=== PATIENT | male | born 1980 | race American Indian/Alaskan Native ===

== ENCOUNTER 2016-12-25 15:11 | Emergency (ER) | payer MEDICARE ==
[2016-12-25 15:31] VITALS: BP 127/72
== END 2016-12-25 18:45 | disposition left against medical advice (07) ==
LOC: ED 15:11
DX: R56.9 Unspecified convulsions (principal); Z53.21 Procedure and treatment not carried out due to patient leaving prior to being seen by health care provider

== ENCOUNTER 2017-05-17 01:47 | Emergency (ER) | payer MEDICARE ==
--- NOTE | 2017-05-17 04:20 | Emergency Department Report ---
HPI - General Chief Complaint: Dental/Oral Time Seen by Provider: 05/17/17 04:03 - HPI HPI: The patient is a 36-year-old male who presents to ED complaining of 8/10 pain in the right side of his mouth x 2 days . Patient states that the pain started 52 days ago and has gotten progressively worse by swelling on the right jaw region. The pain is exacerbated by eating and opening of the mouth. Patient states that it radiates towards ear. Patient describes a as a throbbing, pressure-like sensation. Patient states otherwise well and has no other complaints. Patient has had no fevers and no chills. No chest pain, no shortness of breath. No abdominal pain. No shortness of breath or recent trauma to the face. ED Past Medical Hx - Past Medical History Previous Medical History?: Yes Hx Seizures: Yes Hx HIV: Yes - Surgical History Past Surgical History?: No - Social History Smoking Status: Current Every Day Smoker Substance Use Type: Alcohol - Medications Home Medications: Home Medications Medication Instructions Recorded Confirmed Last Taken Type Ritonavir [Norvir] 100 mg PO QDAY 12/25/16 12/25/16 12/25/16 History lamiVUDine/ZIDOVUDINE [COMBIVIR 1 tab PO DAILY 12/25/16 12/25/16 12/25/16 History 150-300 mg] levETIRAcetam 500 mg PO BID 12/25/16 12/25/16 12/25/16 History Acetaminophen/Codeine [Tylenol 1 tab PO TID #8 tablet 05/17/17 Unknown Rx /Codeine # 3 tab] Amoxicillin/K Clav Tab [Augmentin 1 tab PO Q12HR #20 tab 05/17/17 Unknown Rx 875 mg] Ibuprofen [Motrin] 800 mg PO Q8HR PRN #30 tablet 05/17/17 Unknown Rx ED Review of Systems ROS: Stated complaint: ABSCESS ON RT SIDE OF FACE Other details as noted in HPI Constitutional: denies: chills, fever Eyes: denies: eye pain, eye discharge, vision change ENT: dental pain. denies: ear pain, throat pain, hearing loss, congestion Respiratory: denies: cough, shortness of breath, wheezing Cardiovascular: denies: chest pain, palpitations Endocrine: no symptoms reported Gastrointestinal: denies: abdominal pain, nausea, diarrhea Genitourinary: denies: urgency, dysuria Musculoskeletal: denies: back pain, joint swelling, arthralgia Skin: denies: rash, lesions Neurological: denies: headache, weakness, paresthesias Psychiatric: denies: anxiety, depression Hematological/Lymphatic: denies: easy bleeding, easy bruising Physical Exam - Physical Exam Vital Signs: Vital Signs 05/17/17 02:21 Temperature 97.8 F Pulse Rate 70 Respiratory 20 Rate Blood Pressure 120/84 O2 Sat by Pulse 100 Oximetry Physical Exam: GENERAL: Alert and oriented x3, no apparent distress, Normal Gait, atraumatic. HEAD: Head is normocephalic and a-traumatic. EARS: symetrical, atraumatic, non tender, ear canal clear and moderate cerumen, tympanic membrance non inflamed. gross auditory nml bilaterally. MOUTH:Mouth is well hydrated and without lesions. Tonsils nonerythematous or swollen, Uvula midline, Tongue not elevated. Mucous membranes are moist. Posterior pharynx clear, no exudate or lesions. Patent airways. No active bleeding, no pus discharge, gingival enlargement underneath tooth #29 underneath tooth, tender to palpation of the gum. Tooth #29 is nontender to palpation no dental caries seen on the tooth. Front 5 cm in diameter swelling noticed underneath right jaw NECK: Supple. Non edematous,. submental lymphadenopathy LUNGS: Symetrical with respiration, No wheezing, no rales or crackles, CTAB. HEART: S1, S2 present, regular rate and rhythm without murmur, no rubs, no gallops. Non tender to palpation SKIN: Warm and dry, No lesions, No ulceration or induration present. ED Course Vital Signs 05/17/17 02:21 Temperature 97.8 F Pulse Rate 70 Respiratory 20 Rate Blood Pressure 120/84 O2 Sat by Pulse 100 Oximetry ED Medical Decision Making - Medical Decision Making 36-year-old male who presents with right-sided Facial pain secondary to dental abscess ED course: Patient received 875 mg of augmentin, 2 tablets of Tylenol No. 3. Based upon history and physical examination, pain is a result of an abscess of tooth number 29 and that the pain Pt feels on the right side of his face and towards the ear is referred pain from this infectious process. Pt has no evidence of acute impending airway compromise. At this point, patient will be discharged home on some antibiotics and pain trial, she will do well with an outpatient course of antibiotics. Follow up with the Dental Clinic as referred Vital signs are normal patient is in no acute distress. Pt had an effect uneventful ED stay Critical care attestation.: If time is entered above; I have spent that time in minutes in the direct care of this critically ill patient, excluding procedure time. ED Disposition Clinical Impression: Dental abscess Disposition: DC- TO HOME OR SELFCARE Is pt being admited?: No Does the pt Need Aspirin: No Condition: Stable Instructions: Dental Abscess (ED), Toothache (ED) Additional Instructions: Follow-up with dentist as soon as you can. Take your medication as prescribed. Apply warm compresses to jaw or times a day Prescriptions: Acetaminophen/Codeine [Tylenol /Codeine # 3 tab] 1 tab PO TID #8 tablet Amoxicillin/K Clav Tab [Augmentin 875 mg] 1 tab PO Q12HR #20 tab Ibuprofen [Motrin] 800 mg PO Q8HR PRN #30 tablet PRN Reason: Pain Referrals: PRIMARY CARE, [Primary Care Provider] - 3-5 Days [facility] [Outside] - 3-5 Days [facility] [Outside] - 3-5 Days [facility] [Outside] - 3-5 Days Forms: Accompanied Note, Work/School Release Form(ED) Time of Disposition: 04:45
[2017-05-17] MEDS ORDERED: TYLENOL #3 PO ONE (04:42)
[2017-05-17] MEDS ORDERED: TRIMOX PO ONE (04:42)
[2017-05-17] MEDS ORDERED: AUGMENTIN 875 MG ONE (04:43)
[2017-05-17] MEDS ORDERED: TYLENOL #3 ONE (04:43)
[2017-05-17] MEDS ORDERED: AUGMENTIN 875 MG PO ONE (04:48)
[2017-05-17 05:32] VITALS: BP 124/82
== END 2017-05-17 05:32 | disposition home or self-care (01) ==
LOC: ED 01:47
DX: K04.7 Periapical abscess without sinus (principal); R56.9 Unspecified convulsions; F17.200 Nicotine dependence, unspecified, uncomplicated; Z91.011 Allergy to milk products
CPT/HCPCS: 99282

== ENCOUNTER 2017-06-28 09:43 | Emergency (ER) | payer MEDICARE ==
--- NOTE | 2017-06-28 13:28 | Emergency Department Report ---
HPI - General Chief Complaint: Dental/Oral Time Seen by Provider: 06/28/17 13:27 - HPI HPI: Patient here report that he has dental abscess that is recurring. He said he had no insurance in the past and he was just able to get into [facility] dental clinic and he has an appointment in 2 days. Patient said he has previously been on antibiotic and pain medication which he completed in May but now abscess return right lower toothache. She reports that he has swelling to right facial area with toothache at 10 out of 10 and it feels achy and worse with eating and better when not eating. Denies any fever or chills. Denies any cough, shortness of breath or chest pain. Denies any sore throat or drooling. Patient said he took Motrin for pain but it's not helping. Denies any NIGHT night sweats or recent weight loss. Patient is HIV positive and he is on medication and said that he does not have any problems he follows up at [place] for this. ED Past Medical Hx - Past Medical History Previous Medical History?: Yes Hx Seizures: Yes Hx HIV: Yes (On medicadion) - Surgical History Past Surgical History?: No - Family History Family history: hypertension - Social History Smoking Status: Current Every Day Smoker Substance Use Type: Alcohol Other Social History: Single - Medications Home Medications: Home Medications Medication Instructions Recorded Confirmed Last Taken Type Ritonavir [Norvir] 100 mg PO QDAY 12/25/16 12/25/16 12/25/16 History lamiVUDine/ZIDOVUDINE [COMBIVIR 1 tab PO DAILY 12/25/16 12/25/16 12/25/16 History 150-300 mg] levETIRAcetam 500 mg PO BID 12/25/16 12/25/16 12/25/16 History Amoxicillin/K Clav Tab [Augmentin 1 tab PO Q12HR #20 tab 05/17/17 Unknown Rx 875 mg] Acetaminophen/Codeine [Tylenol 1 tab PO TID PRN #12 tablet 06/28/17 Unknown Rx /Codeine # 3 tab] Clindamycin [Clindamycin CAP] 300 mg PO Q8H #30 cap 06/28/17 Unknown Rx Ibuprofen [Motrin 800 MG tab] 800 mg PO Q8HR PRN #30 tablet 06/28/17 Unknown Rx ED Review of Systems ROS: Stated complaint: ABSSES Other details as noted in HPI Comment: All other systems reviewed and negative Constitutional: no symptoms reported Eyes: denies: eye pain, vision change ENT: dental pain. denies: ear pain, throat pain, epistaxis, congestion Respiratory: no symptoms reported Cardiovascular: denies: chest pain, palpitations, edema, syncope Gastrointestinal: denies: abdominal pain, nausea, vomiting, diarrhea, constipation, hematemesis, melena, hematochezia Genitourinary: denies: urgency, dysuria, frequency, hematuria, discharge, testicular pain, testicular mass Musculoskeletal: denies: back pain, joint swelling, arthralgia, myalgia Skin: denies: rash Neurological: denies: headache Physical Exam - Physical Exam Vital Signs: Vital Signs 06/28/17 09:56 Temperature 98.1 F Pulse Rate 100 H Respiratory 16 Rate Blood Pressure 112/67 O2 Sat by Pulse 99 Oximetry General: This is a 37-year-old male Physical Exam: Head: Normocephalic, atraumatic, no abrasion, no bruising and no contusion. Eyes: Biateral pupils equal and reactive to light, bilateral EOM intact.. Bilateral conjunctival and sclera without injection, normal accommodation. Ears: Bilateral EAC without any redness drainage or swelling, lateral TM pearly singletary bilateral tragus is normal and nontender. No auricular abnormality. No Mastoid bones tenderness. Nose: Moist, Normal Mucosa. Mouth: Mild swelling to mucousa around # 29. Positive dental tenderness. Mild gingival erythema, Uvula is midline and oral airways patent. Moist and tongue is normal. No peritonsillar abscess. No pharyngeal erythema or swelling. Oral airway is patent. Positive rt mandibular swelling and ttP. No erthema to face. Neck: Supple, No adenopathy, full range of motion and no C-spine tenderness. No swelling or tracheal deviation Cardiovascular: S1, S2. Regular rate and rhythm. No murmur. Capillary refill is less then 3 seconds. Lungs: Clear to auscultate bilaterally. No rhonchi, wheezes or rales. No chest wall tenderness MSK: Strength 5/5 in all extremities. No joint deformity or crepitus. Normal inspection. Full range of motion to all extremities Extremities: No clubbing, cyanosis or edema. +2 pulses. No neurovascular compromise Skin: Clean, dry and intact. No rash or lesions. Psych: Normal mood and behavior. ED Course Vital Signs 06/28/17 09:56 Temperature 98.1 F Pulse Rate 100 H Respiratory 16 Rate Blood Pressure 112/67 O2 Sat by Pulse 99 Oximetry - Reevaluation(s) Reevaluation #1: 06/28/17 15:18 Patient received Rocephin 1 g IM for dental cellulitis and toothache/ gingivitis. He received Motrin 800 mg for toothache. ED Medical Decision Making - Medical Decision Making ED course: Patient here for recurrent toothache and abscess. Medical findings for gingivitis, cellulitis oral mucosa, toothache. Patient took a round of antibiotic in May but was not able to get his appointment to see a dentist on until 06/30/2017. Patient is HIV positive and takes medication. He was given Rocephin 1 g IM and emergency room without any adverse reaction. Was given Motrin 800 mg by mouth for pain which relieved his pain down to 2 out of 10. Patient instructed to keep his dental appointment in 2 days and to take antibiotic along with pain medication as instructed. He voices understanding of discharge instructions and diagnosis along with treatment plan. discharged home in stable condition with prescription for Motrin, Tylenol 3 and Clindamycin. Critical care attestation.: If time is entered above; I have spent that time in minutes in the direct care of this critically ill patient, excluding procedure time. ED Disposition Clinical Impression: Tooth ache, Cellulitis of oral soft tissues, Gingivitis Disposition: DC-01 TO HOME OR SELFCARE Is pt being admited?: No Does the pt Need Aspirin: No Condition: Stable Instructions: Dental Abscess (ED), Toothache (ED), Gingivitis (ED) Additional Instructions: Please increase her fluid intake Please do not drive or operate heavy machinery while taking Tylenol No. 3 as this medication causes drowsiness take antibiotic as prescribed Follow-up your dentist on 07/30/2017 as scheduled You can gargle with Listerine and this will help to reduce bacteria Please Floss at least twice daily Prescriptions: Acetaminophen/Codeine [Tylenol /Codeine # 3 tab] 1 tab PO TID PRN #12 tablet PRN Reason: Toothache Clindamycin [Clindamycin CAP] 300 mg PO Q8H #30 cap Ibuprofen [Motrin 800 MG tab] 800 mg PO Q8HR PRN #30 tablet PRN Reason: Pain Referrals: PRIMARY CARE, [Primary Care Provider] - 3-5 Days Your ,dentist [Other] - 06/30/17 Forms: Work/School Release Form(ED)
[2017-06-28] MEDS ORDERED: ROCEPHIN IM STA (14:46)
[2017-06-28] MEDS ORDERED: XYLOCAINE 1% MPF 5 mL INFILTRATI ONE (14:46)
[2017-06-28] MEDS ORDERED: MOTRIN ONE (14:53)
[2017-06-28] MEDS ORDERED: MOTRIN PO ONE (15:04)
[2017-06-28 23:43] VITALS: BP 115/79
== END 2017-06-28 15:30 | disposition home or self-care (01) ==
LOC: ED 09:43
DX: K12.2 Cellulitis and abscess of mouth (principal); K05.10 Chronic gingivitis, plaque induced; F17.200 Nicotine dependence, unspecified, uncomplicated
CPT/HCPCS: 96372; 99282; J0696